=== PATIENT | male | born 1995 | race Caucasian/White ===

== ENCOUNTER 2019-12-19 01:06 | Emergency (ER) | payer BC, SELFPAY ==
[2019-12-19 01:08] VITALS: BP 153/86; PULSE 114; RESP 18; TEMP 36.3; O2SAT 99
--- NOTE | 2019-12-19 01:17 | W.ED.GENAD ---
Discharge Plan Disposition Patient Disposition: HOME Condition: Good Discharge Details Chief Complaint: Sorethroat Clinical Impression: Pharyngitis Primary Care Provider: JAVAN CHANG ED Provider: Patrick Truong Home Meds and New Rx's Prescriptions: No Action No Known Home Meds RF: 0 Discharge Instructions Instructions: Mononucleosis (ED), Pharyngitis (ED) Additional Instructions: At this time the redness and swelling in her throat is likely from a virus. It is inconsistent with an allergic reaction. Please take 600 mg of ibuprofen 1000 mg of Tylenol every 6 hours. Please drink plenty of fluids. It is unlikely that this is caused by mono, but in the potential scenario that it is I would recommend avoiding any sports or trauma that could cause significant injury to your sides for the next 6 to 8 weeks. Get plenty of rest. If you notice any worsening of your symptoms, or any new symptoms such as difficulty swallowing, drinking, or eating, vomiting, diarrhea, fever, chills, shortness of breath, difficulty breathing, chest pain, numbness, weakness, or fainting , please return immediately to the emergency department for reevaluation. Please follow up with your primary care provider as soon as possible for reassessment and reevaluation. As always, it was a pleasure participating in your medical care today. Referrals: JAVAN CHANG [Primary Care Provider] - Medical Decision Making 24-year-old male presents this evening for evaluation of sore throat versus irritation when he tries to swallow. Patient states that last night he went to bed just fine, however this morning when he woke up he felt some mild pain in his throat, and that whenever you try to swallow something was flapping. He checked his throat in the mirror noticed that is notably red and things were slightly enlarged, and came to the ER for further evaluation. Currently he denies any difficulty swallowing, drinking, he denies any difficulty controlling his secretions. He denies any fever, cough, or chills. He does admit to a runny nose over last 24 to 48 hours, additionally he does admit to contacts at his work that have been strep positive recently. Patient has no other complaints at this time. No other modifying factors. Physical exam of the posterior oropharynx demonstrates notably erythematous posterior oropharynx, no vesicles, lesions or signs of drainage. No petechiae. Tonsils are minimally enlarged. Uvula is slightly enlarged, but not overly edematous. Does appear notably erythematous, irritated. Palpation of the posterior oropharynx demonstrates no evidence of peritonsillar abscess or fluctuance. No significant cervical lymphadenopathy. No signs of airway compromise whatsoever at this time. No history of allergies, he is not on any medications. Signs and symptoms clinically inconsistent with allergic reaction. Strep test was performed and this is negative. Suspect viral etiology causing his symptoms. With no evidence of peritonsillar abscess and strep being negative I doubt strep. [place] is on the differential but less likely. No indication for testing, however we will give mono precaution instructions. This time we will give a single round of Decadron, and recommend continue Tylenol and Motrin for swelling irritation and sore throat. Patient is able to tolerate p.o. well, including pills and water without any difficulty. No signs of choking whatsoever. This time I feel he can be safely discharged with close follow-up. Signs and symptoms and consistent with angioedema, airway compromise, peritonsillar abscess. I have extensively reviewed the treatment plan and discharge instructions with the patient. I have addressed all patient concerns at this time. The patient was made aware of what symptoms to monitor for that would warrant a return to the emergency department. Discussed the plan with the patient, they demonstrate verbal understanding and agreement with our assessment and plan at this time. Of note the patient was observed for an additional hour, he tolerated this well, vital signs completely normalized. Repeat exam demonstrates no signs of worsening edema, swelling or abnormality. He is tolerating p.o. well, has no hyper secretions or difficulty controlling secretions, and feels well. Patient will be discharged home. HPI General Date/Time Provider Initiated Documentation: 12/19/19 01:08. HPI Narrative: 24-year-old male presents this evening for evaluation of sore throat versus irritation when he tries to swallow. Patient states that last night he went to bed just fine, however this morning when he woke up he felt some mild pain in his throat, and that whenever you try to swallow something was flapping. He checked his throat in the mirror noticed that is notably red and things were slightly enlarged, and came to the ER for further evaluation. Currently he denies any difficulty swallowing, drinking, he denies any difficulty controlling his secretions. He denies any fever, cough, or chills. He does admit to a runny nose over last 24 to 48 hours, additionally he does admit to contacts at his work that have been strep positive recently. Patient has no other complaints at this time. No other modifying factors. No family history of familial angioedema. No new medications. No change in food. Related Data Home Medications Medication Instructions Recorded Confirmed Unknown [No Known Home Meds] 11/23/15 12/19/19 Allergies Allergy/AdvReac Type Severity Reaction Status Date / Time No Known Allergies Allergy Unverified 12/19/19 01:10 General Stated Complaint: Sorethroat [place]: 3 Review of Systems All systems reviewed & are unremarkable except as noted in HPI and below [facility] Medical History (Updated 12/19/19 @ 01:27 by Patrick Truong DO) No acute medical problems (Acute) Social History Smoking/Tobacco Use Status: Never Alcohol Intake: current Alcohol Intake frequency: 0-2 drinks per day Alcohol type: beer Drug use: Socially Substance use type: marijuana Do you feel safe at home: Yes Do you feel safe in your relationship?: Yes Exam Narrative Exam Narrative: 1.Const: Well-nourished, Well-developed, appearing stated age 2.Eyes: PERRL, no conjunctival injection, and symmetrical lids. 3.ENT: Atraumatic external nose and ears. Moist MM. Neck: Symmetric, trachea midline, No thyromegaly. No difficulty controlling secretions. Posterior oropharynx demonstrates notably erythematous posterior oropharynx, no vesicles, lesions or signs of drainage. No petechiae. Tonsils are minimally enlarged. Uvula is slightly enlarged, but not overly edematous. Does appear notably erythematous, irritated. Palpation of the posterior oropharynx demonstrates no evidence of peritonsillar abscess or fluctuance. No significant cervical lymphadenopathy. 4.CVS: +S1/S2, No murmurs or gallops. Peripheral pulses 2+ and equal in all extremities. Brisk capillary refill in all extremities. 5.RESP: Unlabored respiratory effort. Clear to auscultation bilaterally. No wheezes rales or rhonchi 6.GI: Soft, Nontender/Nondistended, No hepatosplenomegaly. No guarding or rebound. 7.MSK: Normocephalic/Atraumatic, Extremities w/o deformity or ttp No cyanosis or clubbing, Normal movement of all extremities 8.Skin: Warm, Dry. No rashes or lesions. 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 Sensation grossly intact, no focal neurologic deficits. 10.Psych: (AAO) x3. Appropriate mood and affect Course Vital Signs Vital signs: Vital Signs Temperature 36.3 C L 12/19/19 01:08 Pulse 114 H 12/19/19 01:08 Respiratory Rate 18 12/19/19 01:08 Blood Pressure 153/86 H 12/19/19 01:08 Pulse Oximetry 99 12/19/19 01:08 Temperature 36.3 C L 12/19/19 01:08 Pulse 114 H 12/19/19 01:08 Respiratory Rate 18 12/19/19 01:08 Respiratory Effort Non-Labored 12/19/19 01:17 Blood Pressure 153/86 H 12/19/19 01:08 Pulse Oximetry 99 12/19/19 01:08 Pain Level 2 12/19/19 01:08
[2019-12-19] MEDS: Ibuprofen 800 MG TAB PO (01:23)
[2019-12-19] MEDS: Acetaminophen 500 MG TAB 1000 MG PO (01:24)
[2019-12-19] MEDS: Dexamethasone 4 MG TAB 12 MG PO (01:24)
[2019-12-19 02:17] VITALS: BP 134/71; PULSE 78; RESP 18; O2SAT 96
== END 2019-12-19 02:20 | disposition home or self-care (01) ==
LOC: ER 02:28
PROVIDERS: Emergency Provider Student in an Organized Health Care Education/Training Program
DX: J02.9 Acute pharyngitis, unspecified (principal)
CPT/HCPCS: 87880; 99283; 87081; J8540